=== PATIENT | female | born 1970 | race African-American/Black ===

== ENCOUNTER 2019-11-26 00:35 | Day surgery (SDC) | payer OTHER, SELFPAY ==
[2019-11-23 12:54] VITALS: BMI 33.5
[2019-11-26 07:02] VITALS: BP 115/68; PULSE 90; RESP 16; TEMP 36.6; O2SAT 99
--- NOTE | 2019-11-26 07:02 | P.HP_ITS ---
History of Present Illness History of Present Illness Consent: Risks, benefits, and alternatives have been discussed and questions answered. Patient agrees to proceed with procedure. Chief complaint: Neoplasm Screening Narrative: Rufina Torres is a 49 year old AA female referred for her 1st screening colonoscopy. Patient's father has polyps. Patient is asymptomatic. [facility] Past Medical History Medical History (Updated 10/01/19 @ 09:25 by Gemma Moreno NP) Edema Headache Hypertension Surgical History Surgical History (Updated 11/26/19 @ 07:04 by Troy Vinson MD) H/O prior ablation treatment History of bilateral tubal ligation Status post blepharoplasty Family History Family History (Updated 03/29/18 @ 11:33 by DOCTOR UNKNOWN) Mother Diabetes mellitus Father Hypertension Social History Social History (Updated 10/01/19 @ 08:57 by Susanne Zapata [facility]) Smoking status: Never smoker Alcohol intake: current Meds Home Medications and Allergies Home Medications Medication Instructions Recorded Confirmed Type duloxetine 30 mg capsule,delayed 30 mg PO DAILY 10/01/19 11/23/19 History release duloxetine 60 mg capsule,delayed 60 mg PO DAILY 10/01/19 11/23/19 History release estradiol-norethindrone acet 1 1 tablet PO DAILY 10/01/19 11/23/19 History mg-0.5 mg tablet lisinopril 10 1 tablet PO DAILY #90 tablet 10/01/19 11/23/19 Rx mg-hydrochlorothiazide 12.5 mg tablet multivitamin 1 tablet PO DAILY 10/01/19 11/23/19 History Allergies Allergy/AdvReac Type Severity Reaction Status Date / Time No Known Allergies Allergy Unknown Verified 11/26/19 06:58 Exam Const: Orientation/consciousness: patient oriented x3 Resp: Auscultation: clear to auscultation bilaterally Cardio: Rate: regular rate Rhythm: regular rhythm Heart sounds: no murmurs GI: GI Palp: Yes Soft to palpation, No Tenderness to palpation present (GI), Yes No hepatosplenomegaly present and No Palpable mass present Auscultation: normal bowel sounds Neuro: General: patient oriented x3 and no focal motor deficits Extrem: General: no pedal edema Assessment and Plan Additional Plan screening colonoscopy secondary to a history of colonic polyps patient's father
[2019-11-26] MEDS: LACTATED RINGERS 1,000 ML 30 ML IV CONT (07:13)
--- NOTE | 2019-11-26 07:44 | WPDANESEPPF ---
Anes - Initial Pre Proc Eval Procedure: Operation Date: 11/26/19 08:00 Proposed Procedures p Screening Colonoscopy - Troy Vinson MD Date/Time: 11/26/19 07:44 Surgeon: Troy Vinson MD Pre Op Diagnosis: Neoplasm Screening Patient Data Age: 49 Gender: F Height: 5 ft 2 in Weight: 79.1 kg Last Vital Signs Temp 36.6 C 11/26/19 07:02 Pulse 90 11/26/19 07:02 Resp 16 11/26/19 07:02 BP 115/68 11/26/19 07:02 Pulse Ox 99 11/26/19 07:02 Allergies Allergy/AdvReac Type Severity Reaction Status Date / Time No Known Allergies Allergy Unknown Verified 11/26/19 06:58 Home Medications Medication Instructions Recorded Confirmed Type duloxetine 30 mg capsule,delayed 30 mg PO DAILY 10/01/19 11/23/19 History release duloxetine 60 mg capsule,delayed 60 mg PO DAILY 10/01/19 11/23/19 History release estradiol-norethindrone acet 1 1 tablet PO DAILY 10/01/19 11/23/19 History mg-0.5 mg tablet lisinopril 10 1 tablet PO DAILY #90 tablet 10/01/19 11/23/19 Rx mg-hydrochlorothiazide 12.5 mg tablet multivitamin 1 tablet PO DAILY 10/01/19 11/23/19 History Patient hx anesthesia problems: none Family hx anesthesia problems: none PMFSH Past Medical History Medical History Edema Headache Hypertension Surgical History Surgical History H/O prior ablation treatment History of bilateral tubal ligation Status post blepharoplasty Family History Family History Mother Diabetes mellitus Father Hypertension Social History Social History (Updated 10/01/19 @ 08:57 by Susanne Zapata CMA) Smoking status: Never smoker Alcohol intake: current Anes - Eval Final PreProcedure Day of Procedure 11/26/19 07:44 Patient weight: obese Heart: regular rate and rhythm Lungs: clear to auscultation Airway: Mallampati scale class II Neurological: alert and oriented Last oral intake: >/= 8 hours ASA classification: II Emergent: no Anesthesia type and monitoring: general GIVS and standard monitoring Informed Consent: The patient's anesthetic plan and its attendant risks and benefits were discussed with the patient/family/POA. Questions were solicited and answers provided to the satisfaction of the patient/family/POA.
[2019-11-26 08:23] VITALS: BP 76/46; PULSE 82; RESP 16; O2SAT 100
[2019-11-26 08:33] VITALS: BP 84/46; PULSE 78; RESP 16; O2SAT 100
[2019-11-26 08:43] VITALS: BP 107/69; PULSE 88; RESP 19; O2SAT 100
== END 2019-11-26 08:53 | disposition home or self-care (01) ==
PROVIDERS: PCP Internal Medicine; Visit Provider Internal Medicine Gastroenterology
PROC: 0DJD8ZZ Inspection of Lower Intestinal Tract, Via Natural or Artificial Opening Endoscopic (ICD-10-PCS; CPT 45378; principal; 2019-11-26 08:00)
DX: Z12.11 Encounter for screening for malignant neoplasm of colon (principal); D12.0 Benign neoplasm of cecum; D12.3 Benign neoplasm of transverse colon; Z83.71 Family history of colonic polyps; I10 Essential (primary) hypertension; E66.9 Obesity, unspecified; Z68.31 Body mass index [BMI] 31.0-31.9, adult
CPT/HCPCS: 45385; 45380; 88305; J2001; J2704; J7120

== ENCOUNTER 2021-10-06 17:09 | Outpatient (CLI) | payer OTHER, SELFPAY ==
--- NOTE | ~2021-10-06 | MM_ITS ---
EXAMINATION: MM screening [facility] BI w jayjay HISTORY: Screening TECHNIQUE: Craniocaudal and mediolateral oblique 3-D tomosynthesis images were obtained and synthetic 2-D images were generated. CAD analysis was submitted and interpreted. COMPARISON: Comparison to multiple prior studies sequentially, with oldest reviewed study dated 05/01. BREAST PARENCHYMAL COMPOSITION: Breast composed of scattered areas of fibroglandular density. FINDINGS: There is a focal asymmetry in the subareolar location of the left breast which is slightly more prominent than on prior examination. The right breast is stable without evidence for malignancy. IMPRESSION: 1. Developing left breast asymmetry. 2. Additional mammographic views and possible breast ultrasound are recommended. BI-RADS Category 0: Incomplete: Needs additional imaging evaluation. Reviewed, dictated and finalized at location A. KEN BONER IMPRESSION: 1. Developing left breast asymmetry. 2. Additional mammographic views and possible breast ultrasound are recommended . BI-RADS Category 0: Incomplete: Needs additional imaging evaluation.
== END 2021-10-06 17:10 | disposition home or self-care (01) ==
LOC: ANHIMG 17:12
PROVIDERS: PCP Internal Medicine; Visit Provider Obstetrics & Gynecology
DX: Z12.31 Encounter for screening mammogram for malignant neoplasm of breast (principal); R92.8 Other abnormal and inconclusive findings on diagnostic imaging of breast
CPT/HCPCS: 77063; 77067

== ENCOUNTER 2021-12-18 13:56 | Outpatient (CLI) | payer BC, SELFPAY ==
--- NOTE | ~2021-12-18 | MMUS_ITS ---
EXAMINATION: MM diagnostic jones LT w jayjay, US breast LT limited HISTORY: Follow-up left breast asymmetry TECHNIQUE: Additional 3-D tomosynthesis images of the left breast were performed and synthetic 2-D im ages were generated. CAD analysis was submitted and interpreted. High resolution Limited left breast ultrasound was performed. COMPARISON: 10/06/2021 BREAST PARENCHYMAL COMPOSITION: Breast composed of scattered areas of fibroglandular density. FINDINGS: MAMMOGRAPHIC FINDINGS: There is a persistent focal asymmetry posterior to the nipple on CC view, not well visualized on medi al lateral or MLO views. ULTRASOUND: Limited left breast ultrasound: Normal heterogeneous echotexture without focal solid or cystic mass. There are mildly prominent subareolar and periareolar ducts. IMPRESSION: 1. Focal left breast asymmetry without sonographic correlate, likely benign. 2. Recommend 6 month follow-up diagnostic left mammogram. BI-RADS category 3, probably benign findings. Reviewed, dictated and finalized at location A. ROOM ATTENDANT IMPRESSION: 1. Focal left breast asymmetry without sonographic correlate, likely benign. 2. Recommend 6 month follow-up diagnostic left mammogram. BI-RADS category 3, probably benign findings.
== END 2021-12-18 13:57 | disposition home or self-care (01) ==
LOC: ANHIMG 13:59
PROVIDERS: PCP Internal Medicine; Visit Provider Obstetrics & Gynecology
DX: R92.8 Other abnormal and inconclusive findings on diagnostic imaging of breast (principal)
CPT/HCPCS: 76642; 77061; 77065; G0279

== ENCOUNTER 2024-04-11 14:43 | Outpatient (CLI) | payer OTHER, SELFPAY ==
--- NOTE | ~2024-04-11 | MM_ITS ---
EXAMINATION: MM screening [facility] BI w jayjay HISTORY: Screening mammogram TECHNIQUE: Craniocaudal and mediolateral oblique 3-D tomosynthesis images were obtained and synthetic 2-D images were generated. CAD analysis was submitted and interpreted. COMPARISON: 12/18/2021, 10/06/2021, 10/18/2019 BREAST PARENCHYMAL COMPOSITION:Not Dense. There are scattered areas of fibroglandular density. FINDINGS: No suspicious mass, calcification, or architectural distortion are identified in either yaron ast to suggest malignancy. There has been no suspicious interval change. IMPRESSION: No mammographic evidence of malignancy. Recommend routine screening mammography in one year. BI-RADS Category 1: Negative Reviewed, dictated and finalized at location .
== END 2024-04-11 14:44 | disposition home or self-care (01) ==
LOC: ANHIMG 14:45
PROVIDERS: PCP Internal Medicine; Visit Provider Obstetrics & Gynecology
DX: Z12.31 Encounter for screening mammogram for malignant neoplasm of breast (principal)
CPT/HCPCS: 77063; 77067